=== PATIENT | female | born 1960 | race Caucasian/White ===

== ENCOUNTER 2020-05-08 10:55 | Outpatient (CLI) | payer OTHER | END 2020-05-08 10:56 | disposition home or self-care (01) | LOC: COV 10:55 | PROVIDERS: ATTEND Family Medicine | DX: R50.9 Fever, unspecified (principal); Z20.828 Contact with and (suspected) exposure to other viral communicable diseases; R53.83 Other fatigue; R09.81 Nasal congestion; R05 Cough; M79.10 Myalgia, unspecified site ==